=== PATIENT | female | born 1955 | race Hispanic/Latino ===

== ENCOUNTER 2021-09-12 22:04 | Observation (INO) | payer MEDICARE ==
[2021-09-12 22:24] LABS: #Basophils 0.1 10x3/uL (0.0-0.2); #Eosinphils 0.3 10x3/uL (0.0-0.5); #Monocytes 0.7 10x3/uL (0.0-1.1); #Neutrophils 5.1 10x3/uL (1.5-8.4); %Basophils 0.6 % (0.0-2.0); %Eosinophils 3.2 % (0.0-6.0); %Lymphocytes 32.1 % (18.0-47.0); %Monocytes 7.6 % (0.0-10.0); %Neutrophils 56.3 % (40.0-75.0); Hemoglobin 9.7 g/dL (12.0-15.5); Mean Corpuscular HGB CONC 31.9 g/dL (32.0-36.0); Mean Corpuscular Hemoglobin 24.6 pg (27.0-33.0); Platelet Count 345 10x3/uL (150-450); Red Blood Cell (RBC) Count 3.95 10x6/uL (3.90-5.03); White Blood Cell (WBC) Count 9.1 10x3/uL (3.5-10.5)
[2021-09-12] MEDS ORDERED: Aspirin Chewable 81 MG TAB ONE (22:33)
[2021-09-12 22:39] LABS: ALT (SGPT) 14 U/L (8-55); AST (SGOT) 22 U/L (5-34); Albumin 4.1 g/dL (3.4-4.8); Alkaline Phosphatase 133 U/L (40-110); Anion Gap 15 mmol/L (10-20); BUN (Urea Nitrogen) 22 mg/dL (9.8-20.1); Bilirubin, Total 0.3 mg/dL (0.2-1.2); Calc. Creatinine Clearance 0 mL/min (70-130); Calcium 9.7 mg/dL (7.8-10.44); Carbon Dioxide 23 mmol/L (23-31); Chloride 103 mmol/L (98-107); Estimated GFR 95; Globulin 3.4 g/dL (2.4-3.5); Glucose 146 mg/dL (80-115); Potassium 4.1 mmol/L (3.5-5.1); Protein, Total 7.5 g/dL (5.8-8.1); Sodium 137 mmol/L (136-145)
[2021-09-12] MEDS ORDERED: Ondansetron PF 4 MG/2 ML Vial IVP PRN (23:24)
[2021-09-12] MEDS ORDERED: Guaifenesin DM 100-10/5 ML UDCUP PO PRN (23:24)
[2021-09-12] MEDS ORDERED: Calcium Carbonate 500 MG ChewTAB PO PRN (23:24)
[2021-09-12] MEDS ORDERED: Senokot S 8.6-50 MG TAB PO PRN (23:24)
[2021-09-12] MEDS ORDERED: Acetaminophen 325 MG TAB PO PRN (23:24)
[2021-09-12] MEDS ORDERED: Nitroglycerin 0.4 MG TAB (25 Tab Bottle) SL PRN (23:26)
[2021-09-12] MEDS ORDERED: Dextrose 5% in Water 1,000 ML IV PRN (23:29)
[2021-09-12] MEDS ORDERED: HumaLOG 300 UNITS/3 ML VIAL SC PRN (23:29)
[2021-09-12] MEDS ORDERED: Dextrose 50% Abboject 50 ML SYRINGE SLOW IVP PRN (23:29)
[2021-09-13] MEDS ORDERED: Naproxen 500 MG TAB PO SCH (00:30)
[2021-09-13] MEDS ORDERED: Famotidine/PF 20 mg/2ml Vial SLOW IVP SCH (00:30)
[2021-09-13] MEDS ORDERED: Atorvastatin Calcium 20 MG TAB PO SCH ×2 (00:30→21:00)
[2021-09-13 01:13] VITALS: BMI 32.1
[2021-09-13 02:01] LABS: Troponin I Less than 0.010 ng/mL (< 0.028)
[2021-09-13 04:53] LABS: Anion Gap 14 mmol/L (10-20); BUN (Urea Nitrogen) 22 mg/dL (9.8-20.1); Calc. Creatinine Clearance 105 mL/min (70-130); Calcium 8.9 mg/dL (7.8-10.44); Carbon Dioxide 22 mmol/L (23-31); Chloride 106 mmol/L (98-107); Estimated GFR 97; Glucose 146 mg/dL (80-115); Potassium 3.6 mmol/L (3.5-5.1); Sodium 138 mmol/L (136-145)
[2021-09-13 05:00] LABS: Troponin I Less than 0.010 ng/mL (< 0.028)
[2021-09-13] MEDS ORDERED: Glimepiride 4 MG TAB PO SCH (08:00)
[2021-09-13] MEDS ORDERED: Iopamidol 370 76% 100 ML VIAL ONE (08:00)
[2021-09-13] MEDS ORDERED: Carvedilol 6.25 MG TAB PO SCH (08:00)
[2021-09-13] MEDS ORDERED: Furosemide 20 MG TAB PO SCH (09:00)
[2021-09-13] MEDS ORDERED: NPH, Human Insulin Isophane 300 UNIT/3 ML VIAL SC SCH (09:00)
[2021-09-13] MEDS ORDERED: Cholecalciferol 1,000 UNITS (25 MCG) TAB PO SCH (09:00)
[2021-09-13] MEDS ORDERED: Aspirin 81 mg Enteric Coated Tablet PO SCH (09:00)
[2021-09-13] MEDS ORDERED: Clopidogrel Bisulfate 75 MG TAB PO SCH (09:00)
[2021-09-13] MEDS ORDERED: Fluticasone Propionate Nasal Spray 16 gm Bottle NASAL SCH (09:00)
[2021-09-13] MEDS ORDERED: Lisinopril 10 MG TAB PO SCH (09:00)
[2021-09-13] MEDS ORDERED: Famotidine 20 MG TAB PO SCH (09:00)
[2021-09-13] MEDS ORDERED: Enoxaparin Sodium 40 MG/0.4 ML SYRINGE SC SCH (09:00)
[2021-09-13] MEDS ORDERED: Loratadine 10 MG TAB PO SCH (09:00)
[2021-09-13] MEDS ORDERED: Lidocaine 5% Patch TD SCH (09:00)
[2021-09-13 12:51] VITALS: BP 142/63; TEMP 97.2
[2021-09-13 12:53] LABS: Hemoglobin A1c 7.1 % (4.0-6.0)
[2021-09-13] MEDS ORDERED: Transdermal Patch Removal TOP SCH (21:00)
== END 2021-09-13 16:56 | disposition home or self-care (01) ==
LOC: CSHERS 22:04 → CSHTELE 23:18 → UNDOADMOB 09-13 00:13 → CSHTELE 09-13 00:13
PROVIDERS: ADMIT Family Medicine; ATTEND Family Medicine
DX: R07.2 Precordial pain (principal); R55 Syncope and collapse; R79.89 Other specified abnormal findings of blood chemistry; I10 Essential (primary) hypertension; E78.2 Mixed hyperlipidemia; I25.10 Atherosclerotic heart disease of native coronary artery without angina pectoris; E11.65 Type 2 diabetes mellitus with hyperglycemia; D50.9 Iron deficiency anemia, unspecified; R05.3 Chronic cough; J34.9 Unspecified disorder of nose and nasal sinuses; Z87.891 Personal history of nicotine dependence; Z79.02 Long term (current) use of antithrombotics/antiplatelets; Z79.4 Long term (current) use of insulin; Z79.82 Long term (current) use of aspirin; Z79.84 Long term (current) use of oral hypoglycemic drugs; Z79.899 Other long term (current) drug therapy; Z95.1 Presence of aortocoronary bypass graft; Z95.5 Presence of coronary angioplasty implant and graft
CPT/HCPCS: 71045; 71275; 80048; 80053; 82962; 83036; 84443; 84484 ×3; 85025; 85379; 93005; 93971; 96372; 96374; 99285; G0378 ×2; 36415; 36416; J1650; J1815; S0028

== ENCOUNTER 2021-11-22 15:24 | Emergency (ER) | payer MEDICARE | END 2021-11-22 17:48 | disposition home or self-care (01) | LOC: CSHERS 15:24 | DX: M25.562 Pain in left knee (principal); E11.9 Type 2 diabetes mellitus without complications; E78.5 Hyperlipidemia, unspecified; I10 Essential (primary) hypertension ==

== ENCOUNTER 2022-05-24 01:32 | Emergency (ER) | payer MEDICARE ==
[2022-05-24 02:04] LABS: Actual Bicarbonate (HCO3v) 22 mEq/L (22-28); Base Excess -1.9 mEq/L (-2 - +2); Calcium, Ionized (venous) 1.17 mmol/L (1.16-1.32); Chloride (VBG) 95 mmol/L (98-106); Hemoglobin (Hb) 12.2 g/dL (11.7-16.1); Potassium (VBG) 4.47 mmol/L (3.70-5.30); Puncture Site Other Site; RapidComm Collect By Lab; Sodium 128.8 mmol/L (133-146)
[2022-05-24 02:05] LABS: #Basophils 0.1 10x3/uL (0.0-0.2); #Eosinphils 0.2 10x3/uL (0.0-0.5); #Monocytes 0.5 10x3/uL (0.0-1.1); #Neutrophils 4.2 10x3/uL (1.5-8.4); %Basophils 0.8 % (0.0-2.0); %Eosinophils 2.5 % (0.0-6.0); %Lymphocytes 25.1 % (18.0-47.0); %Monocytes 7.5 % (0.0-10.0); %Neutrophils 63.9 % (40.0-75.0); Hemoglobin 10.9 g/dL (12.0-15.5); Mean Corpuscular HGB CONC 31.2 g/dL (32.0-36.0); Mean Corpuscular Hemoglobin 23.8 pg (27.0-33.0); Mean Corpuscular Volume 76.2 fl (81.6-98.3); Mean Platelet Volume 11.9 fl (7.4-10.4); Platelet Count 265 10x3/uL (150-450); RBC Distribution Width 15.9 % (11.5-14.5); Red Blood Cell (RBC) Count 4.58 10x6/uL (3.90-5.03); White Blood Cell (WBC) Count 6.5 10x3/uL (3.5-10.5)
[2022-05-24 02:18] LABS: ALT (SGPT) 13 U/L (8-55); AST (SGOT) 16 U/L (5-34); Alkaline Phosphatase 198 U/L (40-110); Anion Gap 16 mmol/L (10-20); BUN (Urea Nitrogen) 20 mg/dL (9.8-20.1); Bilirubin, Total 0.5 mg/dL (0.2-1.2); Calc. Creatinine Clearance 0 mL/min (70-130); Calcium 9.9 mg/dL (7.8-10.44); Carbon Dioxide 21 mmol/L (23-31); Chloride 95 mmol/L (98-107); Estimated GFR 65; Globulin 3.7 g/dL (2.4-3.5); Potassium 4.4 mmol/L (3.5-5.1); Protein, Total 7.7 g/dL (5.8-8.1); Sodium 128 mmol/L (136-145)
[2022-05-24 02:23] LABS: Glucose 603 mg/dL (80-115)
[2022-05-24] MEDS ORDERED: Insulin Regular 300 UNITS/3 ML VIAL ONE (02:30)
== END 2022-05-24 03:40 | disposition home or self-care (01) ==
LOC: CSHERS 01:32
DX: R42 Dizziness and giddiness (principal); E11.65 Type 2 diabetes mellitus with hyperglycemia; I10 Essential (primary) hypertension; I25.10 Atherosclerotic heart disease of native coronary artery without angina pectoris
CPT/HCPCS: 36416; 71045; 80053; 82010; 82805; 83735; 84484; 85025; 93005; 96361; 96374; J1815

== ENCOUNTER 2022-09-14 08:17 | Emergency (ER) | payer MEDICARE | END 2022-09-14 11:05 | disposition home or self-care (01) | LOC: CSHERS 08:17 | DX: J20.9 Acute bronchitis, unspecified (principal); E11.9 Type 2 diabetes mellitus without complications; E78.5 Hyperlipidemia, unspecified; I10 Essential (primary) hypertension; I25.10 Atherosclerotic heart disease of native coronary artery without angina pectoris | CPT/HCPCS: 71046 ==

== ENCOUNTER 2023-02-23 21:19 | Emergency (ER) | payer MEDICARE ==
[2023-02-23] MEDS ORDERED: Acetaminophen 500 MG TAB ONE (23:27)
[2023-02-24 00:06] LABS: SARS-CoV-2 NAA Rapid Test Not Detected (NotDetected)
== END 2023-02-24 00:43 | disposition home or self-care (01) ==
LOC: CSHERS 21:19
DX: J06.9 Acute upper respiratory infection, unspecified (principal); E11.9 Type 2 diabetes mellitus without complications; E78.5 Hyperlipidemia, unspecified; I10 Essential (primary) hypertension; I25.10 Atherosclerotic heart disease of native coronary artery without angina pectoris; Z20.822 Contact with and (suspected) exposure to COVID-19
CPT/HCPCS: 0240U; 71045

== ENCOUNTER 2024-09-11 17:12 | Emergency (ER) | payer OTHER, BC ==
[2024-09-11] MEDS ORDERED: Acetaminophen 500 MG TAB ONE (17:58)
== END 2024-09-11 20:12 ==
LOC: CSHERS 17:12
DX: S00.03XA Contusion of scalp, initial encounter (principal); E11.9 Type 2 diabetes mellitus without complications; I10 Essential (primary) hypertension; W19.XXXA Unspecified fall, initial encounter
CPT/HCPCS: 70450; 72125